=== PATIENT | male | born 1960 | race Caucasian/White ===

== ENCOUNTER 2020-06-04 14:05 | Emergency (ER) | payer MEDICARE, OTHER ==
[2020-06-04 19:31] LABS: HEMOGLOBIN 17.1 gm/dl (14.0-17.5); RED BLOOD COUNT 5.59 M/UL (4.20-5.50); WHITE BLOOD COUNT 12.5 K/UL (4.5-11.0)
[2020-06-04 19:49] LABS: BUN/CREATININE RATIO 11 (0-10)
[2020-06-04] MEDS ORDERED: DOXYCYCLINE HY100 M2 PO (20:31)
[2020-06-04] MEDS ORDERED: IBUPROFEN600 MG PO (20:31)
[2020-08-10] MEDS ORDERED: MEGACE 400400 MG/10 PO (11:55)
[2020-08-10] MEDS ORDERED: NORVASC5 MG PO (11:55)
[2020-08-10] MEDS ORDERED: PROPRANOLOL HCL60 M1 PO (11:56)
[2020-08-10] MEDS ORDERED: LIPITOR TAB 2020 MG PO (11:56)
[2020-08-10] MEDS ORDERED: CETIRIZINE HCL10 MG PO (11:56)
[2020-08-10] MEDS ORDERED: SINGULAIR10 MG PO (11:57)
[2020-08-10] MEDS ORDERED: MECLIZINE HCL25 MG PO (11:57)
[2020-08-14] MEDS ORDERED: ZOFRAN ODT 4 MG4 MG GT (11:08)
[2020-08-14] MEDS ORDERED: HYDROCODON-ACE1 EAC4 PO (11:08)
== END 2020-06-04 20:47 | disposition home or self-care (01) ==
LOC: ER1 14:05
PROVIDERS: Physician Assistant Medical
DX: R22.0 Localized swelling, mass and lump, head (principal); R22.2 Localized swelling, mass and lump, trunk; R22.31 Localized swelling, mass and lump, right upper limb; I10 Essential (primary) hypertension; J44.9 Chronic obstructive pulmonary disease, unspecified; Z85.820 Personal history of malignant melanoma of skin; Z98.890 Other specified postprocedural states; Z87.891 Personal history of nicotine dependence
CPT/HCPCS: 36415; 80053; 85025; 99283

== ENCOUNTER → 2020-08-10 | Outpatient (CLI) | payer MEDICARE, OTHER ==
[~2020-08-10] MED LIST: CETIRIZINE HCL10 MG PO; DOXYCYCLINE HY100 M2 PO; HYDROCODON-ACE1 EAC4 PO; IBUPROFEN600 MG PO; LIPITOR TAB 2020 MG PO; MECLIZINE HCL25 MG PO; MEGACE 400400 MG/10 PO; NORVASC5 MG PO; PROPRANOLOL HCL60 M1 PO; SINGULAIR10 MG PO; ZOFRAN ODT 4 MG4 MG GT
== END ==
LOC: OPSV2 10:30
DX: Z01.810 Encounter for preprocedural cardiovascular examination (principal); R94.31 Abnormal electrocardiogram [ECG] [EKG]; R00.0 Tachycardia, unspecified
CPT/HCPCS: 93005

== ENCOUNTER → 2020-08-14 | Day surgery (SDC) | payer MEDICARE, OTHER | END | disposition home or self-care (01) | LOC: OR 07:30 | PROVIDERS: Surgery | PROC: 05HN33Z Insertion of Infusion Device into Left Internal Jugular Vein, Percutaneous Approach (ICD-10-PCS; principal; 2020-08-14 08:15) | DX: C79.9 Secondary malignant neoplasm of unspecified site (principal); E78.5 Hyperlipidemia, unspecified; I10 Essential (primary) hypertension; J44.9 Chronic obstructive pulmonary disease, unspecified; K21.9 Gastro-esophageal reflux disease without esophagitis; M19.90 Unspecified osteoarthritis, unspecified site; R00.0 Tachycardia, unspecified; Z79.82 Long term (current) use of aspirin; Z79.2 Long term (current) use of antibiotics; Z79.1 Long term (current) use of non-steroidal anti-inflammatories (NSAID); Z79.899 Other long term (current) drug therapy; Z87.891 Personal history of nicotine dependence | CPT/HCPCS: 71045; 77001; C1769; C1788; J0690; J1100; J1642; J1644; J2001; J2250; J2405; J2704; J3010; J7030; J7040; J7120 ==

== ENCOUNTER 2020-09-27 10:01 | Emergency (ER) | payer MEDICARE, OTHER ==
[2020-09-27 10:35] LABS: HEMOGLOBIN 11.7 gm/dl (14.0-17.5); RED BLOOD COUNT 3.99 M/UL (4.20-5.50); WHITE BLOOD COUNT 12.6 K/UL (4.5-11.0)
[2020-09-27 11:08] LABS: BUN/CREATININE RATIO 34 (0-10)
== END 2020-09-27 13:45 | disposition other institution (70) ==
LOC: ER1 10:01
PROVIDERS: Emergency Medicine
DX: E87.1 Hypo-osmolality and hyponatremia (principal); E87.6 Hypokalemia; Z85.820 Personal history of malignant melanoma of skin; Z20.822 Contact with and (suspected) exposure to COVID-19
CPT/HCPCS: 70450; 71045; 80053; 82140; 82550; 82553; 83605; 83690; 83874; 84484; 85025; 85610; 85730; 87040; 93005; 96374; 99285; J0696; U0002